=== PATIENT | male | born 1965 | race Caucasian/White ===

== ENCOUNTER → 2018-12-03 | Outpatient (CLI) | payer OTHER ==
--- NOTE | 2018-12-03 16:36 | RADIOLOGY REPORT (SQ) ---
EXAM DESCRIPTION: FOOT RIGHT COMPLETE COMPLETED DATE/TIME: 12/03/2018 3:03 pm REASON FOR STUDY: NEURALGIA OF RT FOOT M79.2 NEURALGIA AND NEURITIS, UNSPECIFIED COMPARISON: None. NUMBER OF VIEWS: Three views. TECHNIQUE: AP, lateral and oblique radiographic images acquired of the right foot. LIMITATIONS: None. FINDINGS: MINERALIZATION: Normal. BONES: No acute fracture or dislocation. No worrisome bone lesions. JOINTS: No effusions. SOFT TISSUES: There are 2 approximately 5 mm opaque densities in the soft tissues plantar to the 2nd metatarsal proximal shaft. Not definitively glass or metal but more dense than adjacent bone. OTHER: No other significant finding. IMPRESSION: Midfoot foreign bodies of uncertain clinical significance. TECHNICAL DOCUMENTATION: JOB ID: [id number] [employer]- All Rights Reserved Reading location - IP/workstation name: [email or web address]
== END ==
LOC: OD 14:50
PROVIDERS: ATTEND Physician Assistant
DX: M79.2 Neuralgia and neuritis, unspecified (principal)